=== PATIENT | female | born 1970 | race Caucasian/White ===

== ENCOUNTER → 2018-09-14 | Outpatient (REF) | payer OTHER ==
[2018-09-14 23:33] LABS: CHLAMYDIA DNA AMPLIFICATION NEGATIVE (NEGATIVE); GC DNA AMPLIFICATION NEGATIVE (NEGATIVE)
== END ==
LOC: M LAB REF 16:34
PROVIDERS: ATTEND Physician Assistant
DX: R30.0 Dysuria (principal)

== ENCOUNTER → 2018-10-08 | Outpatient (CLI) | payer OTHER ==
--- NOTE | 2018-10-18 15:01 | REPMRS ---
Patient History The patient states she had a clinical breast exam in 04/2018. Family history of breast cancer at age 50 or over in maternal grandmother, breast cancer at age 50 or over in maternal aunt, breast cancer at age 50 or over in sister, breast cancer at age 50 or over in maternal uncle. Digital Woman Screen Mammo: October 08, 2018 - Exam #: [id number] Bilateral CC and MLO view(s) were taken. Technologist: Greta Jones, Technologist Prior study comparison: 2017, bilateral digital mammo screening bilat, [facility]. September 20, 2016, bilateral digital woman screen mammo, performed [facility]. FINDINGS: The breast tissue is heterogeneously dense. This may lower the sensitivity of mammography. There is a moderate amount of heterogeneously dense fibroglandular tissue which is fairly symmetric. There is no interval development of dominant mass, architectural distortion, or clustered microcalcification typical of malignancy. There has been no change in the appearance of the mammogram from the prior studies. Assessment: BI-RADS/ACR category 1 mammogram. Negative Mammogram. Recommendation Breast MRI of both breasts in 6 months. Routine screening mammogram of both breasts in 1 year (for women over age 40). This patient's Lifetime Breast Cancer RIsk is estimated at 25.4 %. Annual screening Breast MRI scanniing is recommended for patient's whose lifetime risk assessment is over 20%. This mammogram was interpreted with the aid of an FDA-approved computer-aided dectection system. Electronically Signed By: Sean Zavala MD 10/18/18 [id number]
== END ==
LOC: M WHC 12:27
PROVIDERS: ATTEND Family Medicine
DX: Z12.31 Encounter for screening mammogram for malignant neoplasm of breast (principal); Z80.3 Family history of malignant neoplasm of breast

== ENCOUNTER → 2018-10-09 | Outpatient (REF) | payer OTHER | LOC: M LAB REF 10:19 | PROVIDERS: ATTEND Physician Assistant | DX: R30.0 Dysuria (principal) ==

== ENCOUNTER → 2018-12-30 | Outpatient (REF) | payer OTHER ==
[2018-12-31 15:15] LABS: CHLAMYDIA DNA AMPLIFICATION NEGATIVE (NEGATIVE); GC DNA AMPLIFICATION NEGATIVE (NEGATIVE)
== END ==
LOC: M LAB REF 11:18
PROVIDERS: ATTEND Physician Assistant
DX: N76.0 Acute vaginitis (principal)

== ENCOUNTER 2019-01-25 09:36 | Day surgery (SDC) | payer OTHER ==
[~2019-01-25] VITALS: Ht 162.6 cm; Wt 68.5 kg
[~2019-01-25 09:36] MED LIST: AZO1CAP PO; BRONCHW PO; FLAG500T PO; LR 1,000 ML IV ONE; METR375C3 PO; PROBCAP17 PO; SIME80TA10 PO; VALA500T5 PO
[2019-01-25 10:08] LABS: HEMATOCRIT 38.4 % (36.0-47.0); MEAN CORPUSCULAR HEMOGLOBIN 31.6 pg (27.0-33.0); MEAN CORPUSCULAR HGB CONC 33.9 g/dl (32.0-36.5); MEAN CORPUSCULAR VOLUME 93.4 fl (80.0-96.0); PLATELET COUNT, AUTOMATED 242 10^3/uL (150-450); RED BLOOD COUNT 4.11 10^6/uL (4.00-5.40); WHITE BLOOD COUNT 7.8 10^3/uL (4.0-10.0)
[2019-01-25] MEDS ORDERED: AUGM875T28 PO (10:25)
[2019-01-25 10:41] LABS: HCG, SERUM QUALITATIVE NEGATIVE (NEGATIVE)
[2019-01-25] MEDS ORDERED: LIDOCAINE W/EPINEPHRINE 1% 20ML VIAL As Ordered ONE (12:11)
[2019-01-25] MEDS ORDERED: IODINE STRONG SOLN 15 ML BTL As Ordered ONE (12:11)
[2019-01-25] MEDS ORDERED: ONDANSETRON 4MG/2ML VIAL (J2405) As Ordered ONE (12:39)
[2019-01-25] MEDS ORDERED: fentaNYL 100 MCG/2 ML INJECTION (J3010) As Ordered ONE (12:39)
[2019-01-25] MEDS ORDERED: LIDOCAINE 2% INJ 100 MG/5 ML SDV (FOR ANES.) As Ordered ONE (12:39)
[2019-01-25] MEDS ORDERED: PROPOFOL 200 MG/20 ML VIAL As Ordered ONE (12:39)
[2019-01-25] MEDS ORDERED: MIDAZOLAM INJ 2 MG/2 ML VIAL (J2250) As Ordered ONE (12:39)
[2019-01-25] MEDS ORDERED: dexameTHASONE 4 MG/ML 1ML VIAL (J1100) As Ordered ONE (12:39)
[2019-01-25] MEDS ORDERED: KETOROLAC 60 MG/2 ML VIAL (J1885) As Ordered ONE (12:39)
[2019-01-25 14:30] VITALS: BP 132/80
[2019-01-26] MEDS ORDERED: LIDOCAINE 2% W/ EPINEPHRINE 1.7 ML DENTAL INJ As Ordered ONE (08:59)
--- NOTE | 2019-01-27 13:14 | RO ---
DATE OF PROCEDURE: 01/25/2019 PREPROCEDURE DIAGNOSES: ASC-H Pap smear and colposcopy biopsy/Pap smear mismatch. POSTPROCEDURE DIAGNOSES: ASC-H Pap smear and colposcopy biopsy/Pap smear mismatch. PROCEDURE: Loop electrosurgical excision procedure. SURGEON: Dr. Jang MAIN ENTREE COOK AND CASHIER: None ANESTHESIA: MAC. FLUIDS: 500 mL of lactated Ringers URINE OUTPUT: 250 mL. ESTIMATED BLOOD LOSS: 1 mL. COMPLICATIONS: None. ANTIBIOTICS: None indicated. DESCRIPTION OF PROCEDURE: The risks, benefits, indications and alternatives of the procedure were reviewed with the patient and informed consent was obtained. The patient was taken to the operating room where IV sedation was obtained without difficulty. The patient was then placed in the lithotomy position using Arthur stirrups. The patient was then prepped and draped in the usual sterile fashion and the bladder was drained using in and out catheter. A surgical time out was then performed and the patient's identity and planned procedure were verified with the operative team. A sterile speculum was then placed into the vagina and the cervix was visualized. A paracervical block was then performed using approximately 10 mL of 1% Lidocaine with epinephrine. Lugol's solution was then copiously applied to the cervix and it highlighted a small lesion around the transformation zone, extending into the 12 o'clock position of the cervix. The LEEP device was then set to 60-60 blend and activated. The looped electrocautery wire was then passed across the external cervical os in a single pass. Production of an adequate tissue sample was collected and sent to pathology for review. Superficial electrocoagulation of the cervical stroma was then performed with excellent hemostasis achieved. Monsel's solution was then applied to the cervix and hemostasis was assured. All instruments were then removed from the patient's vagina. At the completion of the case, sponge, instrument and needle counts were correct times two. The patient tolerated the procedure well and was taken to the postanesthesia care unit (PACU) in stable condition. KHALIDA
== END 2019-01-25 14:45 | disposition home or self-care (01) ==
LOC: M SDC 09:36
PROVIDERS: ATTEND Obstetrics & Gynecology
DX: N87.0 Mild cervical dysplasia (principal); K58.8 Other irritable bowel syndrome; F32.9 Major depressive disorder, single episode, unspecified; G43.909 Migraine, unspecified, not intractable, without status migrainosus; Z87.891 Personal history of nicotine dependence; Z79.899 Other long term (current) drug therapy
CPT/HCPCS: 36415; 57522; 84703; 85027; 88307; J1100; J1885; J2250; J2405; J3010

== ENCOUNTER → 2019-04-19 | Outpatient (CLI) | payer OTHER ==
[~2019-04-19] MED LIST changes: +AUGM875T28 PO; -LR 1,000 ML IV ONE; +PROHANCE 279.3MG/ML 15ML VIAL (A9576) As Ordered ONE
--- NOTE | 2019-04-19 20:03 | REP ---
MRI breast study without contrast: History: High-density breast tissue on mammography. Positive family history of breast carcinoma. Estimated lifetime breast cancer risk assessment 25.4%. Comparison mammography October 08, 2018. Technique: The patient was positioned in the prone breast coil device. An initial T2-weighted 3-D sequence was acquired in the axial plane. At this point in the examination, the patient indication she was too uncomfortable to position and did not wish to continue the examination. Only one sequence was acquired. No contrast dose was administered. Findings: The T1-weighted sequence which was successfully acquired demonstrates a T1 hyperintense cyst indicating proteinaceous fluid content in the right breast laterally. This measures 2 cm in greatest diameter. There are other smaller cysts which also shows slightly increased signal intensity elsewhere in the right breast. There is a low T1-weighted zone in the left mid breast which may be a cyst as well. No suspicious morphologic abnormality is seen on these images. Impression: Incomplete breast MR imaging. Cystic breast changes noted bilaterally. The exam could not be completed because the patient became uncomfortable. If the patient wishes a reattempt could be performed. Whole breast ultrasound could be considered as well. Electronically Signed by Herbert Zavala MD 04/19/2019 08:19 P
== END ==
LOC: M RAD 14:08
PROVIDERS: ATTEND Student in an Organized Health Care Education/Training Program
DX: Z12.31 Encounter for screening mammogram for malignant neoplasm of breast (principal)
CPT/HCPCS: A9576; C8908

== ENCOUNTER → 2019-06-17 | Outpatient (CLI) | payer OTHER ==
[~2019-06-17] MED LIST changes: -PROHANCE 279.3MG/ML 15ML VIAL (A9576) As Ordered ONE
== END ==
LOC: M PLALAB 11:45
PROVIDERS: ATTEND Surgery
DX: Z13.79 Encounter for other screening for genetic and chromosomal anomalies (principal)

== ENCOUNTER → 2019-07-08 | Outpatient (CLI) | payer OTHER ==
[~2019-07-08] MED LIST changes: +LIDOCAINE 1% MDV 20ML VIAL As Ordered ONE; +SODIUM BICARBONATE 8.4% INJ 50MEQ 50 ML VIAL As Ordered ONE
[2019-07-08 08:26] VITALS: BP 136/82
--- NOTE | 2019-07-08 18:46 | ROOPDOC ---
[facility] Report Of Operation Report of Operation DATE OF PROCEDURE: 07/08/19 PREPROCEDURE DIAGNOSES: right breast large cysts POSTPROCEDURE DIAGNOSES: same PROCEDURE: ultrasound guided aspiration of right breast two large cysts SURGEON: Eusebio Abbott SENIOR COMPLIANCE OFFICER: ANESTHESIA: local 13 cc ESTIMATED BLOOD LOSS: Approximately mL. COMPLICATIONS: none DESCRIPTION OF PROCEDURE: Lidocaine 1% LOT [id number] Expiration JUL 2020 Sodium bicarbonate 8.4% LOT [id number] Expiration NOV 2020 Procedure details: Informed consent was obtained in the preop area. The most common risk and possible complications including bleeding, hematoma, bruising, infection, injury to surrounding structures were explained to the patient and she expressed understanding. Patient was taken to the procedure room and placed on the bed in the supine position with the right upper extremity placed above the head. Appropriate time out was done stating patients name, date of , and the procedure to be performed. The right breast was prepped and draped in the usual fashion. The ultrasound was used to confirm the location of the two large breast cysts at 10:00 in the right breast. Plain Lidocaine 1% and 8.4% sodium bicarbonate 10:1 mix was used to numb the skin, the area adjacent to the cysts and tissues along the anticipated needle tract. 18 G spinal needle was used for aspiration. The large complex cyst at 10:00 was aspirated first and returned thick brown viscous fluid. Next the second large cyst which appeared simple was aspirated and the fluid appeared light brown. This was also sent for cytology. Both cysts were completely aspirated and collapsed.Confirmatory imaging was saved. There were few other smaller cysts in the right breast but patient did not wish to try to aspirate them at this time. Manual pressure over the biopsy cavity and tract was held after the clip introducer was withdrawn. No bleeding was noted upon removal of the pressure. Postprocedural dressing was placed. Patient tolerated procedure well and was taken to the recovery unit in stable condition. Discharge instructions were discussed with the patient and she expressed understanding. EUSEBIO ABBOTT DO Jul 08, 2019 18:46
--- NOTE | 2019-07-11 08:09 | REP ---
FOCUSED RIGHT BREAST SONOGRAPHY: FINDINGS: Sonographic guidance is provided to Dr. Nation who performed ultrasound-guided procedure. Electronically Signed by Herbert Zavala MD 07/11/2019 11:43 A
== END ==
LOC: M IRPRO 06:57
PROVIDERS: ATTEND Surgery
DX: N60.11 Diffuse cystic mastopathy of right breast (principal)

== ENCOUNTER → 2019-08-16 | Outpatient (REF) | payer OTHER ==
[~2019-08-16] MED LIST changes: -LIDOCAINE 1% MDV 20ML VIAL As Ordered ONE; -SODIUM BICARBONATE 8.4% INJ 50MEQ 50 ML VIAL As Ordered ONE
[2019-08-16 17:54] LABS: CHLAMYDIA DNA AMPLIFICATION POSITIVE (NEGATIVE); GC DNA AMPLIFICATION NEGATIVE (NEGATIVE)
== END ==
LOC: M LAB REF 15:44
PROVIDERS: ATTEND Physician Assistant Medical
DX: Z20.2 Contact with and (suspected) exposure to infections with a predominantly sexual mode of transmission (principal)

== ENCOUNTER → 2019-10-11 | Outpatient (CLI) | payer OTHER ==
--- NOTE | 2019-10-11 09:47 | REPMRS ---
Patient History The patient states she had a clinical breast exam in 2019. Family history of breast cancer at age 50 or over in maternal grandmother, breast cancer at age 50 or over in maternal aunt, breast cancer at age 50 or over in sister, breast cancer at age 50 or over in maternal uncle. Digital Woman Screen Mammo: October 11, 2019 - Exam #: [id number] Bilateral CC and MLO view(s) were taken. Technologist: Candy Casas, Technologist Prior study comparison: October 08, 2018, bilateral digital woman screen mammo performed at [facility] [place] [facility]. 2017, bilateral digital mammo screening bilat, [facility]. September 20, 2016, bilateral digital woman screen mammo, performed at [facility]. FINDINGS: The breast tissue is heterogeneously dense. This may lower the sensitivity of mammography. The Volpara volumetric breast density category is: C. There is a moderate amount of heterogeneously dense fibroglandular tissue which is fairly symmetric. There is no interval development of dominant mass, architectural distortion, or grouped microcalcification typical of malignancy. There has been no change in the appearance of the mammogram from the prior studies. 3-D tomosynthesis shows no additional findings. Assessment: BI-RADS/ACR category 1 mammogram. Negative Mammogram. Recommendation Breast MRI of both breasts in 6 months. Routine screening mammogram of both breasts in 1 year (for women over age 40). This patient's Lifetime Breast Cancer RIsk is estimated at 25.1 %. Annual screening Breast MRI scanniing is recommended for patient's whose lifetime risk assessment is over 20%. This mammogram was interpreted with the aid of an FDA-approved computer-aided dectection system. Electronically Signed By: Sean Zavala MD 10/11/19 [id number]
--- NOTE | 2019-10-11 10:58 | REP ---
WHOLE BREAST BILATERAL SONOGRAPHY: HISTORY: Dense breast tissue mammographically. Screening. Comparison is made with today's mammography. Comparison sonography June 24, 2019. Comparison breast MRI study April 19, 2019. SONOGRAPHIC FINDINGS: Heterogeneous fibroglandular background echotexture is seen bilaterally. Multiple cysts are noted bilaterally. No suspicious sonographic abnormality is seen. The largest cyst seen in the right breast is 1.2 cm in greatest diameter located at 10-o'clock position, 5 cm from the nipple. The largest left breast cysts seen is a 1.7 cm in greatest diameter located at the 2-o'clock position 1.0 cm from the nipple. IMPRESSION: BIRADS category 2 benign findings. Multiple small breast cysts.
== END ==
LOC: M WHC 08:51
PROVIDERS: ATTEND Surgery
DX: Z12.31 Encounter for screening mammogram for malignant neoplasm of breast (principal); R92.2 Inconclusive mammogram

== ENCOUNTER 2020-02-07 13:52 | Emergency (ER) | payer OTHER ==
[~2020-02-07] VITALS: Ht 162.6 cm; Wt 72.4 kg
[2020-02-07] MEDS ORDERED: CETI-24 (14:03)
[2020-02-07] MEDS ORDERED: PRED20TA (14:03)
[2020-02-07] MEDS ORDERED: SERT50TA29 (14:03)
[2020-02-07] MEDS ORDERED: PRED10TA2 PO (14:46)
[2020-02-07] MEDS ORDERED: BENA25CA4 PO (14:46)
[2020-02-07 14:55] VITALS: BP 104/59
== END 2020-02-07 14:59 | disposition home or self-care (01) ==
LOC: M ED 13:52
DX: L50.9 Urticaria, unspecified (principal); Z79.899 Other long term (current) drug therapy

== ENCOUNTER → 2020-02-14 | Emergency (ER) | payer OTHER ==
[~2020-02-14] MED LIST changes: +BENA25CA4 PO; +CETI-24; +LORATADINE 10 MG TAB As Ordered ONE; +ONDANSETRON 4 MG TAB As Ordered ONE; +PRED10TA2 PO; +PRED20TA; +SERT50TA29; +methylPREDNISolone 125MG 2ML VIAL As Ordered ONE
[2020-02-14 10:24] LABS: BASO % 0.1 % (0.0-1.0); EOS % 0.4 % (0.0-3.0); HEMOGLOBIN 11.1 g/dl (12.0-15.5); LYMPH # 1.2 10^3/uL (1.5-5.0); LYMPH % 16.1 % (24.0-44.0); MEAN CORPUSCULAR HEMOGLOBIN 30.6 pg (27.0-33.0); MEAN CORPUSCULAR HGB CONC 32.6 g/dl (32.0-36.5); MEAN CORPUSCULAR VOLUME 93.7 fl (80.0-96.0); MONO # 0.2 10^3/uL (0.0-0.8); NEUTROPHILS # 6.1 10^3/uL (1.5-8.5); PLATELET COUNT, AUTOMATED 258 10^3/uL (150-450); RED BLOOD COUNT 3.63 10^6/uL (4.00-5.40); WHITE BLOOD COUNT 7.6 10^3/uL (4.0-10.0)
[2020-02-14 11:21] LABS: ERYTHROCYTE SEDIMENTATION RATE 21 mm/hr (0-20)
[2020-02-14 11:35] LABS: ALBUMIN 3.1 GM/DL (3.2-5.2); ALT/SGPT 46 U/L (12-78); BILIRUBIN,TOTAL 0.8 MG/DL (0.2-1.0); BLOOD UREA NITROGEN 10 MG/DL (7-18); C REACTIVE PROTEIN QUANTITATIV 5.84 MG/DL (0.00-0.30); CALCIUM LEVEL 8.3 MG/DL (8.5-10.1); CARBON DIOXIDE LEVEL 27 MEQ/L (21-32); CHLORIDE LEVEL 106 MEQ/L (98-107); CREATININE FOR GFR 0.63 MG/DL (0.55-1.30); GLOMERULAR FILTRATION RATE > 60.0 (>58); GLUCOSE, FASTING 115 MG/DL (70-100); POTASSIUM SERUM 3.6 MEQ/L (3.5-5.1); SODIUM LEVEL 140 MEQ/L (136-145); TOTAL PROTEIN 6.2 GM/DL (6.4-8.2)
[2020-02-15 12:08] LABS: ANTINUCLEAR ANTIBODIES DIRECT Negative (Negative)
== END | disposition home or self-care (01) ==
LOC: M ED 07:20
DX: L29.9 Pruritus, unspecified (principal); Z79.899 Other long term (current) drug therapy

== ENCOUNTER → 2020-02-17 | Outpatient (REF) | payer OTHER ==
[~2020-02-17] MED LIST changes: -LORATADINE 10 MG TAB As Ordered ONE; -ONDANSETRON 4 MG TAB As Ordered ONE; -methylPREDNISolone 125MG 2ML VIAL As Ordered ONE
== END ==
LOC: M LAB REF 17:14
PROVIDERS: ATTEND Dermatology
DX: R21 Rash and other nonspecific skin eruption (principal)

== ENCOUNTER → 2020-02-17 | Outpatient (CLI) | payer OTHER ==
[2020-02-17 11:51] LABS: BASO % 0.1 % (0.0-1.0); EOS # 0.1 10^3/uL (0.0-0.5); EOS % 0.6 % (0.0-3.0); HEMOGLOBIN 10.9 g/dl (12.0-15.5); LYMPH # 1.5 10^3/uL (1.5-5.0); LYMPH % 19.5 % (24.0-44.0); MEAN CORPUSCULAR HEMOGLOBIN 30.6 pg (27.0-33.0); MEAN CORPUSCULAR HGB CONC 32.1 g/dl (32.0-36.5); MEAN CORPUSCULAR VOLUME 95.5 fl (80.0-96.0); MONO # 0.2 10^3/uL (0.0-0.8); NEUTROPHILS % 76.4 % (36.0-66.0); PLATELET COUNT, AUTOMATED 273 10^3/uL (150-450); RED BLOOD COUNT 3.56 10^6/uL (4.00-5.40); WHITE BLOOD COUNT 7.9 10^3/uL (4.0-10.0)
[2020-02-17 12:22] LABS: ERYTHROCYTE SEDIMENTATION RATE > 140 mm/hr (0-20)
[2020-02-17 13:13] LABS: ALBUMIN 3.2 GM/DL (3.2-5.2); BILIRUBIN,DIRECT 0.2 MG/DL (0.0-0.2); BILIRUBIN,TOTAL 0.8 MG/DL (0.2-1.0); C REACTIVE PROTEIN QUANTITATIV 6.02 MG/DL (0.00-0.30); FREE T4 1.05 NG/DL (0.76-1.46); THYROID STIMULATING HORMONE 0.871 uIU/ML (0.358-3.740); TOTAL PROTEIN 6.7 GM/DL (6.4-8.2)
== END ==
LOC: M LAB 10:02
PROVIDERS: ATTEND Dermatology
DX: R21 Rash and other nonspecific skin eruption (principal)

== ENCOUNTER → 2020-02-23 | Outpatient (CLI) | payer OTHER ==
[2020-02-23 14:55] LABS: APPEARANCE, URINE CLOUDY (CLEAR); BACTERIA, URINE AUTO NEGATIVE (NEGATIVE); BILIRUBIN, URINE AUTO NEGATIVE (NEGATIVE); BLOOD, URINE BLOOD NEGATIVE (NEGATIVE); COLOR, URINE YELLOW (YELLOW); GLUCOSE, URINE (UA) AUTO NEGATIVE (NEGATIVE); KETONE, URINE AUTO NEGATIVE (NEGATIVE); LEUKOCYTE ESTERASE, URINE AUTO TRACE (NEGATIVE); NITRITE, URINE AUTO NEGATIVE (NEGATIVE); PROTEIN, URINE AUTO NEGATIVE (NEGATIVE); RBC, URINE AUTO 1 /HPF (0-3); SPECIFIC GRAVITY URINE AUTO 1.011 (1.002-1.035); SQUAMOUS EPITHELIAL CELL UR AU 12 /HPF (0-6); UROBILINOGEN, URINE AUTO 0.2 mg/dL (0.0-2.0); WBC, URINE AUTO 6 /HPF (0-3)
[2020-02-23 17:53] LABS: HEPATITIS A ANTIBODY IGM NEGATIVE (NEGATIVE); HEPATITIS B CORE ANTIBODY IGM NEGATIVE (NEGATIVE); HEPATITIS B SURFACE ANTIGEN NEGATIVE (NEGATIVE); HEPATITIS C VIRUS ABY INDEX 0.1 INDEX (<0.8)
[2020-02-27 17:48] LABS: HEPATITIS B CORE ANTIBODY IGG Negative (Negative)
== END ==
LOC: M LAB 14:15
PROVIDERS: ATTEND Dermatology
DX: R94.5 Abnormal results of liver function studies (principal)
CPT/HCPCS: 36415; 81001; 86256; 86704; 86705; 86709; 86803; 87340; G0463